=== PATIENT | female | born 1990 | race Caucasian/White ===

== ENCOUNTER 2021-12-26 11:15 | Outpatient (CLI) | payer OTHER, MEDICAID, SELFPAY ==
[2021-12-26 23:59] LABS: SARS PCR* Negative SARS-CoV-2 (Negative)
== END 2021-12-26 11:16 | disposition home or self-care (01) ==
LOC: KYNREF 11:16
PROVIDERS: PCP Family Medicine; Visit Provider Family Medicine
DX: Z11.52 Encounter for screening for COVID-19 (principal); R11.10 Vomiting, unspecified
CPT/HCPCS: 87635

== ENCOUNTER 2022-09-29 15:27 | Outpatient (CLI) | payer BC, MEDICAID, SELFPAY ==
[2022-09-29 18:36] LABS: Chlamydia DNA Amplified* NOT DETECTED (No Detected); GC DNA Amplified* NOT DETECTED (No Detected)
== END 2022-09-29 15:28 | disposition home or self-care (01) ==
LOC: NFLDREF 15:27
PROVIDERS: PCP Family Medicine; Visit Provider Registered Nurse
DX: N89.8 Other specified noninflammatory disorders of vagina (principal)
CPT/HCPCS: 87491; 87591

== ENCOUNTER 2023-07-01 15:08 | Outpatient (CLI) | payer BC, MEDICAID, SELFPAY ==
[2023-07-01 22:37] LABS: Bacterial Vaginosis* Negative (Negative); Candida glab/krus NOT DETECTED (No Detected); Candida species NOT DETECTED (No Detected); Trichomonas vaginalis NOT DETECTED (No Detected)
== END 2023-07-01 15:09 | disposition home or self-care (01) ==
LOC: KYNREF 15:09
PROVIDERS: PCP Family Medicine; Visit Provider Nurse Practitioner Family
DX: N89.8 Other specified noninflammatory disorders of vagina (principal)
CPT/HCPCS: 81513; 87481; 87661

== ENCOUNTER 2023-12-09 16:46 | Outpatient (CLI) | payer BC, MEDICAID, SELFPAY ==
--- OUTSIDE RECORDS SUMMARY | 2023-12-09 16:48 | XMS_ITS | Clinical Summary ---
Author Organization [place] Address [address] [place] [address] Care Team Providers Care Research Group Director Name Role Phone July Primary Care Provider Allergies No known active allergies Medications No known medications Active Problems Problem Noted Date Diagnosed Date NO ACTIVE PROBLEMS 06/09/2013 Immunizations Name Administration Dates Next Due TDAP Vaccine (Adacel) 11/10/2008 Family History Medical History Relation Comments Depression Father Relation Status Comments Father Alive Mother Alive Social History Tobacco Use Types Packs/Day Years Used Date Smoking Tobacco: Former Cigarettes Q uit: 09/02/2008 Smokeless Tobacco: Never Alcohol Use Standard Drinks/Week Comments No 0 (1 standard drink = 0.6 oz pur e alcohol) Adolescent Education Answer Date Record ed Getting School Help Needed Not on file 01/26 Sex and Gender Information Value Date Recorded Sex Assigned at Not on file Gender Identity Not on file Sexual Orientation Not on file Last Filed Vital Signs Vital Sign Reading Time Taken Comments Blood Pressure 100/68 06/09/2013 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
--- OUTSIDE RECORDS SUMMARY | 2023-12-09 16:48 | XMS_ITS | Encounter Summary ---
Author Organization [place] Address [address] [place] [address] Care Team Providers Care Chief Radiology Name Role Phone Santos July Primary Care Provider [phone] Reason for Referral * Diagnostic Imaging Ultrasound - Closed Specialty Diagnoses / Procedures Referred By Susan chinchilla Referred To Contact Diagnoses related condition, antepartum Procedures [facility] [place] [address] [place] [address] Referral ID Status Reason Start Date Expiration Date Visits Re quested Visits Authorized [id number] Closed 05/31/2017 05/31/2018 1 1 CTOR ENGINEERING * - Closed Specialty Diagnoses / Procedures Referred By Susan chinchilla Referred To Contact Diagnoses related condition, [facility] [place] [address] [place] [address] Referral ID Status Reason Start Date Expiration Date Visits Re quested Visits Authorized [id number] Closed 05/31/2017 05/31/2018 1 1 Comments FOB coarctation of aorta CTOR ENGINEERING Encounter Details Date Type Department Care Team (Late st Contact Info) Description 05/31/2017 [facility] Only [facility] [place] [address] [place] [address] [facility] [place] [address] [place] [id number] related condition, antepartum (Primary Dx) Social History Tobacco Use Types Packs/Day Years Used Date Smoking Tobacco: Former Cigarettes Q uit: 09/02/2008 Smokeless Tobacco: Never Alcohol Use Standard Drinks/Week Comments No 0 (1 standard drink = 0.6 oz pur e alcohol) Comments Yes Sex and Gender Information Value Date Recorded Sex Assigned at Not on file Gender Identity Not on file Sexual Orientation Not on file documented as of this encounter Plan of Treatment Scheduled Referrals Name Type Priority Associated Diagnoses Orde r Schedule [facility] Genetic Counseling Referral Routine related condition, antepartum 1 Occurrences starting 05/31/2017 until 06/01/2018 documented as of this encounter Results * [facility] Comprehensive Single (08/06/2017 12:58 PM CDT) Anatomical Region Laterality Modality Ultrasound 08/06/2017 11:5 6 AM CDT Impressions 08/06/2017 1:39 PM CDT IMPRESSION ----- 1) Intrauterine at 18+2 weeks gestational age. 2) None of the anomalies commonly detected by ultrasound were evident in the detailed anatomic survey described above. Suboptimal profile. 3) Growth parameters and estimated weight were consistent with an appropriate for gestation age pattern of growth. 4) The amniotic fluid volume appeared normal. Narrative 08/06/2017 1:39 PM CDT Comprehensive ----- Pat. Name: MARA EMANUEL Study Date: 08/06/2017 11:56am Pat. NO: [id number] Referring ??MD: KEVIN BENNETT Site: [facility] Supervisor: Lucinda Zamarripa RDMS : 1990 Age: 26 ----- INDICATION ----- Father of baby with aortic coarctation. METHOD ----- Transabdominal ultrasound examination. View: Sufficient. ----- [place] . Number of fetuses: 1. DATING ----- ? Date ?Details ?Gest. age ?RASTA LMP ?03/31/2017 ? 18 w + 2 d ? 01/05/2018 U/S ? 08/06/2017 ? based upon AC, BPD, Femur, HC ?19 w + 0 d ? 12/31/2017 Assigned dating ?Dating performed on 08/06/2017, based on the LMP ?18 w + 2 d ? 01/05/2018 GENERAL EVALUATION ----- Cardiac activity: present. FHR 130 bpm. movements: visualized. Presentation: breech. Placenta: posterior, There is no evidence of placenta previa. Umbilical cord: 3 vessel cord. Amniotic fluid: Amount of AF: normal amount. MVP 3.7 cm. DARIO 12.6 cm. Q1 3.2 cm, Q2 3.4 cm, Q3 2.3 cm, Q4 3.7 cm. BIOMETRY ----- Main Biometry: BPD ? 41.0 ?mm ? 18w 3d ? Hadlock OFD ? 58.8 ?mm ? 19w 1d ? Nicolaides HC ?160.2 ?mm ?18w 6d ? Hadlock AC ?143.2 ?mm ?19w 5d ? Hadlock Femur ? 28.7 ?mm ?18w 6d ? Hadlock Cerebellum tr ? 19.3 ?mm ?18w 5d ? Nicolaides CM ? 3.7 ?mm ? Nuchal fold ?3.42 ?mm ? Humerus ? 27.2 ?mm ? 18w 5d ?Walter Weight Calculation: EFW ? 279 ? g ? EFW (lb,oz) ? 0 lb 10 ?oz Calculated by ?Hadlock (IBR-PW-SO-FL) Head / Face / Neck Biometry: Hand Box Folder ?4.9 ?mm ? Nasal bone ?6.0 ?mm ? Amniotic Fluid / FHR: AF MVP ?3.7 ? cm ? DARIO ? 12.6 ?cm ? FHR ?130 ? bpm ? ANATOMY ----- The following structures appear normal: Head / Neck ? Cranium. Head size. Head shape. Lateral ventricles. Choroid plexus. Midline falx. Cavum septi pellucidi. Cerebellum. Cisterna magna. ? Thalami. ? Neck. Nuchal fold. Face ? Lips. Nose. Orbits. Heart / Thorax ?4-chamber view. RVOT. LVOT. Aortic arch. Bicaval view. Ductal arch. 5-ddcqyu-iymwlqr view. Cardiac position. Cardiac size. Cardiac rhythm. ? Diaphragm. Abdomen ? Abdominal wall. Cord insertion. Stomach. Kidneys. Bladder. Liver. Bowel. Spine / Skelet. ? Cervical spine. Thoracic spine. Lumbar spine. Sacral spine. Extremities ?Arms. Legs. The following structures could not be adequately visualized: Face ? Profile. MATERNAL STRUCTURES ----- Cervix ?Visualized, Appears Closed. ? Cervical length 39.1 mm. Right Ovary ?Visualized. Left Ovary ?Visualized. RECOMMENDATION ----- We discussed the findings on today's ultrasound with the patient. A repeat ultrasound has been scheduled in 3 weeks with screening echo to reevaluate profile. She is interested in genetic screening, but could not stay today, a genetic counseling visit will be scheduled at her request with her next ultrasound. Return to primary provider for continued care. Thank-you for the opportunity to participate in the care of this patient. If you have questions regarding today's evaluation or if we can be of further service, please contact the [facility]. anomalies may be present but not detected. Procedure Note Everardo Kassandra Lee, - 08/06/2017 Comprehensive ----- Ilana. Name:Kathryn EMANUEL Date:08/06/2017 11:56am Pat. NO: [id number] MD:KEVIN BENNETT [facility]Lucinda Zamarripa RDMS :1990Age:26 ----- INDICATION ----- Father of baby with aortic coarctation. METHOD ----- Transabdominal ultrasound examination. View: Sufficient. ----- [place] . Number of fetuses: 1. DATING ----- DateDetailsGest. age RASTA LMP 03/31/201718 w + 2 d 01/05/2018 U/S 08/06/2017based upon AC, BPD, Femur, HC19 w + 0 d 12/31/2017 Assigned dating Dating performed on 08/06/2017, based onthe LMP 18 w +2 d 01/05/2018 GENERAL EVALUATION ----- Cardiac activity: present. FHR 130 bpm. movements: visualized. Presentation: breech. Placenta: posterior, There is no evidence of placenta previa. Umbilical cord: 3 vessel cord. Amniotic fluid: Amount of AF: normal amount. MVP 3.7 cm. DARIO 12.6 cm. Q13.2 cm, Q2 3.4 cm, Q3 2.3 cm, Q4 3.7 cm. BIOMETRY ----- Main Biometry: BPD 41.0 mm18w 3d Hadlock OFD 58.8 mm19w 1d Nicolaides HC 160.2 mm18w 6d Hadlock AC 143.2 mm19w 5d Hadlock Femur 28.7 mm18w 6d Hadlock Cerebellum tr 19.3 mm18w 5d Nicolaides CM 3.7 mm Nuchal fold 3.42 mm Humerus 27.2 mm18w 5d Walter Weight Calculation: EFW 279 g EFW (lb,oz) 0 lb 10 oz Calculated by Blanca (DND-OF-CB-FL) Head / Face / Neck Biometry: Hand Box Folder 4.9 mm Nasal bone 6.0 mm Amniotic Fluid / FHR: AF MVP 3.7 cm DARIO 12.6 cm FHR 130 bpm ANATOMY ----- The following structures appear normal: Head / Neck Cranium. Head size. Head shape.Lateral ventricles. Choroid plexus. Midline falx. Cavum septi pellucidi.Cerebellum. Cisterna magna. Thalami. Neck. Nuchal fold. Face Lips. Nose. Orbits. Heart / Thorax 4-chamber view. RVOT. LVOT. Aorticarch. Bicaval view. Ductal arch. 9-ksuxrf-bcjzyaa view. Cardiac position.Cardiac size. Cardiac rhythm. Diaphragm. Abdomen Abdominal wall. Cord insertion.Stomach. Kidneys. Bladder. Liver. Bowel. Spine / Skelet. Cervical spine. Thoracic spine. Lumbarspine. Sacral spine. Extremities Arms. Legs. The following structures could not be adequately visualized: Face Profile. MATERNAL STRUCTURES ----- Cervix Visualized, Appears Closed. Cervical length 39.1 mm. Right Ovary Visualized. Left Ovary Visualized. RECOMMENDATION ----- We discussed the findings on today's ultrasound with the patient. A repeat ultrasound has been scheduled in 3 weeks with screening fetalecho to reevaluate profile. She is interested in genetic screening,but could not stay today, a genetic counseling visit will be scheduled at her request with her nextultrasound. Return to primary provider for continued care. Thank-you for the opportunity to participate in the care of this patient.If you have questions regarding today's evaluation or if we can be offurther service, please contact the [facility]. anomalies may be present but not detected. IMPRESSION ----- 1) Intrauterine at 18+2 weeks gestational age. 2) None of the anomalies commonly detected by ultrasound were evident inthe detailed anatomic survey described above. Suboptimal profile. 3) Growth parameters and estimated weight were consistent with anappropriate for gestation age pattern of growth. 4) The amniotic fluid volume appeared normal. July Santos [facility] US ORDERABLE S documented in this encounter Visit Diagnoses Diagnosis related condition, antepartum- Primary related condition, antepartum documented in this encounter Care Teams Chief Radiology Relationship Specialty Start Date End Date SantosJuly [place] [address] [place] [address] PCP - General Physician Benefits Coordinator 08/27/17 documented as of this encounter
--- OUTSIDE RECORDS SUMMARY | 2023-12-09 16:48 | XMS_ITS | Referral Summary ---
Author Organization [facility] Address [address] [place] [address] Care Team Providers Care Glass Processing Worker Name Role Phone July Primary Care Provider [phone] Allergies No known active allergies Medications No known medications Active Problems Problem Noted Date Diagnosed Date NO ACTIVE PROBLEMS 06/09/2013 Immunizations Name Administration Dates Next Due TDAP Vaccine (Adacel) 11/10/2008 Social History Tobacco Use Types Packs/Day Years [...] Comments Blood Pressure 100/68 06/09/2013 8:13 AM CAR PINCHER Pulse 84 10/07/2010 4:20 PM CDT Temperature 36.8 ??C (98.2 ??F) 10/07/2010 4:20 PM CD T Respiratory Rate - - Oxygen Saturation - - Inhaled Oxygen Concentration - - Weight 69.9 kg (154 lb 1.6 oz) 06/09/2013 8:13 A M CAR PINCHER Height 159 cm (5' 2.6) 06/09/2013 8:13 AM CAR PINCHER Body Mass Index 27.65 06/09/2013 8:13 AM CAR PINCHER Plan of Treatment Not on file Care Teams Glass Processing Worker Relationship Specialty Start Date End Date July [facility] [address] [place] [id number] PCP - General Physician Small Business Sales Representative 08/27/17
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
== END 2023-12-09 16:47 | disposition home or self-care (01) ==
LOC: NFLDUCREF 16:46
PROVIDERS: PCP Family Medicine; Visit Provider Physician Assistant
DX: J02.9 Acute pharyngitis, unspecified (principal)
CPT/HCPCS: 87070